=== PATIENT | male | born 1965 | race Caucasian/White ===

== ENCOUNTER 2024-12-14 06:07 | Inpatient (IN) | payer OTHER, SELFPAY ==
[2024-12-01 09:13] LABS: Hematocrit 41.4 % (39.0-52.0); Hemoglobin 14.7 g/dL (13.0-18.0); Mean Corp Hgb Conc. 35.5 g/dL (33.0-37.0); Mean Corpuscular Hgb 30.1 pg (27.0-31.0); Mean Corpuscular Volume 84.8 fL (80.0-94.0); Mean Platelet Volume 9.9 fL (7.4-10.4); Platelet Count 219 10^3/uL (130-400); Red Blood Cell Count 4.88 10^6/uL (4.70-6.10); Red Cell Dist. Width 12.3 % (11.5-14.5); White Blood Cell Count 5.4 10^3/uL (4.8-10.8)
[2024-12-01 10:32] LABS: Blood Urea Nitrogen 19 mg/dl (9-20); Calcium 9.3 mg/dl (8.4-10.2); Carbon Dioxide 28 mmol/L (22-30); Chloride 107 mmol/L (98-107); Glucose 88 mg/dl (70-99); Potassium 4.5 mmol/L (3.5-5.1); Sodium 141 mmol/L (135-145); eGFR > 60.00
[2024-12-01 13:14] VITALS: BMI 26.1
[2024-12-14] VITALS (13 sets, daily range): BP systolic 111–156; BP diastolic 69–86; BMI 26.1
[2024-12-14] MEDS: NEBCIN 480 MG/100 ML ENEMA 1 BOTTLE RECTAL (06:59)
[2024-12-14] MEDS: NORMOSOL-R/PLASMALYTE-A 1000 IV ×3 (07:00→22:10)
[2024-12-14] MEDS: TYLENOL 1000 MG PO (07:14)
--- NOTE | 2024-12-14 09:34 | W.IMMPOSTOP ---
Surgical Immed Post Op Note
-
Primary Surgeon: Jesse
Assisting Surgeon: Will
Pre-op Diagnosis: Prostate cancer
Post-op Diagnosis: Same
Procedure Performed: Radical perineal prostatatectomy, bladder neck reconstruction
Anesthesia Type: GET
Specimen / Cultures: prostate, median lobe, bladder neck and urethral margins
Estimated Blood Loss: 400 ml
Complications: None
[2024-12-14] MEDS: TORADOL 15 MG IV ×3 (10:25→22:10)
[2024-12-14] MEDS: DETROL LA 4 MG PO (10:46)
[2024-12-14 11:02] LABS: Hemoglobin 14.4 g/dL (13.0-18.0)
[2024-12-14 11:29] LABS: Blood Urea Nitrogen 15 mg/dl (9-20); Calcium 8.6 mg/dl (8.4-10.2); Carbon Dioxide 24 mmol/L (22-30); Chloride 109 mmol/L (98-107); Estimated Creatinine Clearance 97 ml/min; Glucose 134 mg/dl (70-99); Sodium 140 mmol/L (135-145); eGFR > 60.00
--- NOTE | 2024-12-14 14:24 | CM ---
Initial assessmennt completed with patient who lives with his and 2 college aged children in a 2 story home plus basement with B/B on 2nd floor and 1/2 bath on 1st, 1 step to enter. [employer] patient was independent and drove. No DME. No in-home
services. Does have a HC-POA. No service. PCP is Dr. Erasto Ramirez and Pharmacy is [facility] in [place]. Discharge POC: Home with HH RN. Patient preference is HH.
[2024-12-14] MEDS: COLACE PO (17:59)
[2024-12-14] MEDS: COLACE 100 MG PO (17:59)
[2024-12-14] MEDS: POLYSPORIN/DOUBLE ANTIBIOTIC 1 APPLIC TOPICAL (20:15)
--- NOTE | 2024-12-14 22:24 | PTCARENOTE ---
Copious bloody drainage from bubba - drsg changed as ordered.
[2024-12-15 03:00] VITALS: BP 134/76
[2024-12-15] MEDS: TORADOL 15 MG IV ×3 (03:06→16:32)
[2024-12-15 07:20] VITALS: BP 107/64
[2024-12-15 07:49] LABS: Hematocrit 38.5 % (39.0-52.0); Hemoglobin 13.7 g/dL (13.0-18.0); Mean Corp Hgb Conc. 35.6 g/dL (33.0-37.0); Mean Corpuscular Hgb 30.1 pg (27.0-31.0); Mean Corpuscular Volume 84.6 fL (80.0-94.0); Mean Platelet Volume 9.3 fL (7.4-10.4); Platelet Count 175 10^3/uL (130-400); Red Blood Cell Count 4.55 10^6/uL (4.70-6.10); White Blood Cell Count 11.6 10^3/uL (4.8-10.8)
[2024-12-15 08:25] LABS: Blood Urea Nitrogen 16 mg/dl (9-20); Calcium 8.8 mg/dl (8.4-10.2); Carbon Dioxide 27 mmol/L (22-30); Chloride 109 mmol/L (98-107); Estimated Creatinine Clearance 87 ml/min; Glucose 87 mg/dl (70-99); Potassium 4.1 mmol/L (3.5-5.1); Sodium 141 mmol/L (135-145); eGFR > 60.00
[2024-12-15] MEDS: NORMOSOL-R/PLASMALYTE-A 1000 IV (08:50)
[2024-12-15] MEDS: LEVAQUIN 100 IV (08:51)
[2024-12-15] MEDS: POLYSPORIN/DOUBLE ANTIBIOTIC 1 APPLIC TOPICAL ×2 (08:51→20:25)
[2024-12-15] MEDS: COLACE 100 MG PO ×3 (08:51→17:14)
--- NOTE | 2024-12-15 08:51 | W.PN.SURGUPD ---
Surgical Update
Surgical Update
Stable 1 day s/p radical prostatectomy
Afeb
VSS
Tolerating diet
Labs good
---
Dressing intact: Devante drain removed
Urine minimally bloody
---
Increase activity
Anticipate discharge tomorrow
--- NOTE | 2024-12-15 09:30 | CM ---
Cm reviewed medical records. Patient plan for discharge 12/16. CM will continue to follow as needed.
PLAN: home
--- NOTE | 2024-12-15 09:40 | VNURNOTE ---
Home Health Liaison met with patient at bedside to discuss [facility] nurse/therapy, visits, schedule and homebound status. Patient is agreeable and understands that visits at home will be 2-3 x per week to assess and teach medical and hopkins management.
Patient has 2 dogs at home, [facility] pet policy reviewed and pt in agreement. Patient is aware that [facility] will contact them for start of care in 1-2 days after discharge from .
[facility] referral completed in [facility].
[2024-12-15 11:15] VITALS: BP 126/74
[2024-12-15 15:45] VITALS: BP 121/76
[2024-12-15 23:08] VITALS: BP 123/71
[2024-12-16] MEDS: NORMOSOL-R/PLASMALYTE-A 1000 IV (00:25)
[2024-12-16 07:29] VITALS: BP 119/73
[2024-12-16] MEDS: LEVAQUIN 100 IV (08:28)
[2024-12-16] MEDS: POLYSPORIN/DOUBLE ANTIBIOTIC 1 APPLIC TOPICAL (08:28)
[2024-12-16] MEDS: COLACE 100 MG PO ×2 (08:29→11:19)
--- NOTE | 2024-12-16 11:31 | W.DS.TRANS ---
DC Summary - Senior It Specialist
-
Discharge Instructions:
Sleep Apnea Risk Low
Discharge Diagnosis/Procedures Prostate cancer
Diet No restrictions
Activity No strenuous activity
Additional Activity for 2 weeks
Driving Restrictions No driving for 1 week
Bathing Restrictions Shower after each BM the next 5 days
Other Services [facility]
Wound Care [facility] to remove Hudson cathetr around 10 am Friday,
December 27
Instructions:
Stand-Alone Forms:
Changes to Home Medications: No
Discharge Medications:
DC Medications w/original date entered in [email or web address]
No Meds [No Current Medications] 12/07/24
Home Medication Changes
Pending Results: No
--- NOTE | 2024-12-16 12:19 | CM ---
Reviewed the chart notes. Patient for discharge to home today. CM continues to be available to patient/family and is monitoring medical plan for needs at discharge.
Plan: Discharge to home with [facility] services.
[2024-12-16 12:21] VITALS: BP 131/78
== END 2024-12-16 13:01 | disposition home health service (06) | DRG 708 ==
LOC: 2 SOUTH 06:07
PROVIDERS: ADMITTING PHYSICIAN Specialist; FAMILY PHYSICIAN Physician Assistant Medical
PROC: 0VT00ZZ Resection of Prostate, Open Approach (ICD-10-PCS; 2024-12-14)
PROC: 0TQC0ZZ Repair Bladder Neck, Open Approach (ICD-10-PCS; 2024-12-14)
DX: C61 Malignant neoplasm of prostate (principal)
CPT/HCPCS: 88305; 88307; 88309; 88332; 80048; 85014; 85018; 85027; 86850; 86900; 86901; 88331; 93005; A4648